=== PATIENT | male | born 1960 | race Caucasian/White ===

== ENCOUNTER 2017-02-12 06:58 | Inpatient (IN) | payer OTHER ==
[2017-02-12] VITALS (7 sets, daily range): BP systolic 115–145; BP diastolic 61–81
[~2017-02-12] VITALS: Ht 170.2 cm; Wt 108.0 kg
--- NOTE | ~2017-02-12 | PR ---
[place], [place] PROGRESS NOTE NAME: ROSIE PALMER UNIT #: [id number] ROOM: 401 DOCTOR: DI ARELLANO MD BIRTHDATE: [birth year] DOS: 02/15/2017 SUBJECTIVE: The patient is doing about the same. OBJECTIVE: VITAL SIGNS: Blood pressure 128/71, heart rate 95 beats per minute, breathing 16 times per minute, temperature of 98.5 degrees Fahrenheit. GENERAL APPEARANCE: The patient is alert and oriented x 3, in no visible distress except for generalized weakness, obesity. The patient unable to communicate much. HEENT AND NECK: Exam within normal limits. CARDIOVASCULAR SYSTEM: Heart rate is regular in rate and rhythm. S1 and S2 normally audible. LUNGS: Clear to auscultation. ABDOMEN: Soft, nontender. No obvious organomegaly. Bowel sounds are present. EXTREMITIES: Without significant cyanosis or edema. IMPRESSION: 1. The patient with hypoxemic respiratory failure, acute over chronic, with bacterial pneumonia, growing mixed gram positive and negative organisms, secondary to aspiration pneumonia, being followed and treated by Dr. Garcia, the whistle punk. The patient is clinically improving with treatment. 2. Hypokalemia, for which the patient was given extra potassium supplements, and the patient being hydrated with IV fluids. 3. History of advanced brain injury as a child with encephalomalacia and brain damage with limited functioning and advanced disability. We are taking bedsore precautions. DI ARELLANO MD CM:PNTRANS [phone] DI ARELLANO MD 02/16/17 1646 interface
--- NOTE | ~2017-02-12 | PROC NOTE ---
[place], [place] PROCEDURE NOTE NAME: ROSIE PALMER UNIT #: [id number] ROOM: 403 DOCTOR: EDMUNDO GARCIA MD,KORI BIRTHDATE: [birth year] DOS: 02/13/2017 PREOPERATIVE DIAGNOSES: The patient with acute exacerbation of pneumonia with excessive chest congestion and respiratory distress. POSTOPERATIVE DIAGNOSES: Removal of copious amount of mucopurulent material removed from the endobronchial tree bilaterally. PROCEDURE DESCRIPTION: Informed consent obtained from the patient. The patient was placed in supine position. The consent was obtained from the patient's power of disability attorney. The sedation was administered by the Anesthesia Department. After achieving appropriate sedation for the patient, the video fiberoptic bronchoscope advanced into the patient's airway into the laryngeal area. Epiglottis and vocal cords were seen. Bronchoscope advanced to the vocal cord and tracheal lumen as the tracheal lumen was entered. Copious amount of thick purulent secretion present coating the trachea and filling the tracheal lumen. All secretions suctioned out with the help of normal saline wash. Flora was noted sharp. After removal of the secretions. Right upper, right middle, right lower, left upper, lingular lower lobe bronchi were all noted with copious amounts of similar secretions as present in the tracheal lumen was removed with the help of normal saline wash. Procedure was well tolerated by the patient without any difficulty. Based on the current bronchoscopy, no change in treatment will be needed. The patient already getting broad spectrum intravenous antibiotics for good coverage of Gram-positive and Gram-negative organisms. The feeding could be resumed for the patient 4 hours after the bronchoscopy. Aspiration precaution to be continued as previously. KORI WYATT MD CM:PROCNOTE:PROCEDURE NOTE [id number] KORI GARCIA MD
--- NOTE | ~2017-02-12 | CON ---
[place], [place] REPORT OF CONSULTATION NAME: ROSIE PALMER UNIT #: [id number] ROOM: 403 DOCTOR: EDMUNDO GARCIA MD,KORI BIRTHDATE: [birth year] DOS: 02/13/2017 PULMONARY CONSULTATION EVALUATION AND MANAGEMENT CONSULTATION REQUESTED BY: Dr. Bella Alston. HISTORY OF PRESENT ILLNESS: A 56-year-old white male who has been noted with chronic head trauma, neurologic injury for the patient for several years, resides at the nursing facility for the chronic traumatic brain injury and quadriplegia. The patient has been noted with symptoms of having progressive increase in the respiratory rate with gurgling sound heard as well as acute hypoxia. The patient was sent to the Emergency Room, where he had been assessed and currently hospitalized for further medical management. The patient unable to give me history because of the patient's history of chronic traumatic brain injury, inability to speak and aphasia. He has been currently noted comfortably lying in the bed. He has been noted with some labored breathing as well as some chest congestion and gurgling sounds were heard. The patient resides at the nursing facility. He has been treated previously in the hospital, medical record reviewed for the acute hypoxic respiratory failure with MRSA pneumonia in 06/2016 in this hospital and then sent back to the nursing facility. PAST MEDICAL HISTORY: 1. History of recurrent acute pneumonia in the past. 2. History of chronic oropharyngeal dysphagia for the patient with traumatic brain injury. 3. 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 4. History of cholelithiasis. 5. Hepatic steatosis. 6. Moderate obesity. 7. Generalized seizure disorder. 8. Urethral stricture for this patient with suprapubic catheter. 9. Past history of deep venous thrombosis of the left lower extremity. PAST SURGICAL HISTORY: Noted: 1. PEG tube placement. 2. Suprapubic catheter insertion. 3. Fiberoptic bronchoscopy for the patient, which was therapeutic, done in 06/2016. SOCIAL HISTORY: The patient is a long-term resident of the nursing facility at the present time. He has not been known with any history of tobacco use, alcohol or any recent tobacco use. FAMILY HISTORY: The patient was noted unknown. MEDICATIONS: Current medications administered were noted as use of Risperdal, Coumadin 7.5 mg daily, Depakote, IV Zosyn, vancomycin, intravenous fluids and other p.r.n. medications administration. [place], [place] REPORT OF CONSULTATION NAME: ROSIE PALMER UNIT #: [id number] ROOM: 403 DOCTOR: EDMUNDO GARCIA MD,KORI BIRTHDATE: [birth year] ALLERGIES: The drug allergy history of the patient was recorded as no known drug allergies. PHYSICAL EXAMINATION: GENERAL: This is a 56-year-old white male currently noted to be awake and alert, does not speak with aphasia. Height of 5 feet 7 inches, weight of 170 pounds. VITAL SIGNS: Shows normal temperature since admission, respiratory rate of 24-18, heart rate of 92-105, blood pressure 116/62-128/65. Pulse oxygen saturation on 4 L nasal cannula was noted as 99% saturation this morning. HEENT: Examination shows head was atraumatic, chronic moderate obesity. NECK: Supple. CARDIOVASCULAR: S1, S2 audible. LUNGS: Noted scattered crackles at the lungs were noted bilaterally. ABDOMEN: Soft, obese, nontender. PEG tube in place. EXTREMITIES: The patient shows chronic obesity without edema, clubbing, cyanosis. CENTRAL NERVOUS SYSTEM: The patient noted with quadriplegia. SKIN: Visible skin does not show any abnormalities such as lesions or rashes. MUSCULOSKELETAL: No gross deformities. LABORATORY DATA: Arterial blood gas that was done yesterday on 3 L nasal cannula, pH of 7.41, pCO2 of 45, pO2 of 65.7. Lactic acid yesterday noted 2.1. Followup lactic acid of 3.3 in the last 24 hours. The INR for patient on admission was 2.1. CBC of the patient of 02/12/2017, WBC count 11.6, hemoglobin 12.7, hematocrit 40.3, platelet count 262,000. CMP of the patient on 02/12/2017, glucose 189, BUN and creatinine was normal, sodium 133, CO2 of 33. Endotracheal aspirate culture of the patient noted with light growth of gram-negative bacilli for this patient. Creatinine for this patient was noted as normal this morning. Chest x-ray of the patient that was done, 1 view was noted partially noted infiltration involving the left lung for this patient in the left lower lobe. Right lung appeared to be clear. There was no finding of congestive heart failure or significant pleural fluid visible. IMPRESSION: 1. The patient who has been currently admitted to the hospital, noted with acute on chronic hypoxic respiratory failure, result of acute aspiration pneumonia, gram negative infection with possibility of mixed nancy to be suspected. The patient was noted excessive congestion of chest with difficulty breathing with inability to expectorate sputum for this patient. 2. The patient with chronic anticoagulation noted with therapeutic INR which has relapsed. 3. Past history of deep venous thrombosis as well. 4. Lactic acidosis with finding of acute sepsis secondary to acute bacterial pneumonia has been also noted. 5. History of chronic oropharyngeal dysphagia, the patient with past history of recurrent pneumonia; however, the patient has not been noted with any acute infection for the past 7-8 months and not hospitalized for any pneumonia since then. [place], [place] REPORT OF CONSULTATION NAME: ROSIE PALMER UNIT #: [id number] ROOM: 403 DOCTOR: KORI LEON MD BIRTHDATE: [birth year] PLAN OF TREATMENT: The blood culture of the patient has been already obtained. Monitor cultures of the endotracheal aspirate. Fiberoptic bronchoscopy to help clear up significant secretions that will also improve the respiratory distress on this patient. Use of the BiPAP if necessary as well. The patient has been noted with only mild hypercapnia with well compensated pH for this patient on admission. Currently, titrating well oxygen supplementation nasal cannula. Intravenous fluids for the patient with close monitoring to prevent any fluid overload as well. Other supportive therapy, plan of management as well for the patient as in progress. Further change in the treatment will be done after bronchoscopy. Anticoagulation at this time could be continued for this patient as the INR was noted in the low normal therapeutic range. Continue to maintain an INR of the patient in the therapeutic range. Thanks for allowing me to participate in the care of this patient. KORI WYATT MD CM:CONSTR:REPORT OF CONSULTATION 1212 02/14/17 0325 interface
--- NOTE | ~2017-02-12 | PR ---
[place], [place] PROGRESS NOTE NAME: ROSIE PALMER UNIT #: [id number] ROOM: 403 DOCTOR: DEEPALI NATHAN MD BIRTHDATE: [birth year] DOS: 02/14/2017 SUBJECTIVE: The patient is about the same, does not have any new changes. OBJECTIVE: GENERAL: On exam, he is awake and alert, orientation is questionable. LUNGS: Diminished breath sounds, scattered rhonchi and rales. HEART: Regular. ABDOMEN: Obese, soft. Suprapubic catheter and PEG tube both in place. EXTREMITIES: Without any edema. ASSESSMENT AND PLAN: 1. The patient with aspiration pneumonia, status post bronchoscopy. Bronch cultures are not completed yet, but so far he is growing Proteus mirabilis and methicillin-resistant Staphylococcus aureus on the sputum, for which he is already on Zosyn and vancomycin. Urine culture also shows Pseudomonas, which is sensitive to the Zosyn. 2. Hypokalemia, supplementation is ordered. We will discontinue IV fluids. 3. Mental retardation and developmental disabilities. The patient has tube feeding because of chronic aspiration. We will restart the tube feeding. Should go back to care home tomorrow. DEEPALI NATHAN MD CM:PNTRANS [id number] DEEPALI NATHAN MD 02/14/17 1120 interface
--- NOTE | ~2017-02-12 | PR ---
[place], [place] PROGRESS NOTE NAME: ROSIE PALMER UNIT #: [id number] ROOM: 401 DOCTOR: DI ARELLANO MD BIRTHDATE: [birth year] DOS: 02/16/2017 SUBJECTIVE: The patient is sleeping, difficult to wake up. OBJECTIVE: VITAL SIGNS: Blood pressure 134/78, heart rate 86 beats per minute, breathing 18 times per minute, temperature 98 degrees Fahrenheit. GENERAL APPEARANCE: The patient is alert and oriented x 3, in no visible distress. Generalized weakness, obesity. The patient is not communicating. Has a PEG tube in place. HEENT AND NECK: Exam within normal limits. CARDIOVASCULAR SYSTEM: Heart rate is regular in rate and rhythm. S1 and S2 normally audible. LUNGS: Clear to auscultation. ABDOMEN: Soft, nontender. No obvious organomegaly. Bowel sounds are present. EXTREMITIES: Without significant cyanosis or edema. IMPRESSION: 1. The patient with acute hypoxemic respiratory failure from acute bacterial pneumonia, suspected to be mixed gram-positive and negative from aspiration by Dr. Garcia with MRSA. 2. PEG tube placement for nutrition. 3. INR therapeutic at 2.2. The patient is being on Coumadin. 4. Hypokalemia, being treated with extra potassium supplements. 5. Brain injury with advanced disability. 6. Urine infection with resistant Pseudomonas and Enterococcus faecalis, being treated with vancomycin. I will add Zosyn to the treatment. 7. Advanced disability. The patient appears to be too sick to be sent back to longterm at this time. I will try to get him to [facility], an LTAC facility, under care of Dr. Garcia. DI ARELLANO MD CM:PNTRANS [phone] DI ARELLANO MD 02/17/17310 interface
--- NOTE | ~2017-02-12 | PR ---
[place], [place] PROGRESS NOTE NAME: ROSIE PALMER UNIT #: [id number] ROOM: 401 DOCTOR: KOIR LEON MD BIRTHDATE: [birth year] DOS: 02/15/2017 SUBJECTIVE: The patient has been noted comfortable at this time with the reduction of chest congestion noted from the past 24 hours. The patient has not been noted any hemodynamic instability for this patient. He has been noted to be awake and arousable. OBJECTIVE: VITAL SIGNS: Shows normal temperature this morning 99.7 degrees Fahrenheit, respiratory rate 18-16, heart rate 95, blood pressure 128/71. Pulse oxygen saturation noted on 2 L nasal cannula 98% saturation. HEENT: Examination shows head was atraumatic. Eyes nonicterus. CARDIOVASCULAR: S1, S2 audible. LUNGS: Shows scattered crackles at the lungs were noted for the patient without any wheezing. ABDOMEN: Soft, nontender. LABORATORY DATA: Cultures of the bronchial washing of the patient confirmed the MRSA for this patient. No other organisms were isolated. IMPRESSION: 1. The patient with acute aspiration pneumonia with methicillin-resistant Staphylococcus aureus for the patient with a history of chronic traumatic brain injury for the patient. 2. Chronic oropharyngeal dysphagia for the patient. PEG tube in place. 3. Chronic anticoagulation for the patient, which has been noted stable with the PT/INR yesterday noted as 2.5. PLAN OF TREATMENT: Continuation of the antibiotics based on the culture results with discontinuation of the Zosyn and only continuation of the vancomycin. Obtain another portable chest x-ray of the patient to assess the progression of the pneumonia. Other supportive therapy, plan and management. Obtain PT/INR for the patient for tomorrow morning as well. [place], [place] PROGRESS NOTE NAME: ROSIE PALMER UNIT #: [id number] ROOM: 401 DOCTOR: KORI LEON MD BIRTHDATE: [birth year] KORI WYATT MD CM:PNTRANS [id number] KORI GARCIA MD 02/16/17 0929 interface
--- NOTE | ~2017-02-12 | PR ---
[place], [place] PROGRESS NOTE NAME: ROSIE PALMER UNIT #: [id number] ROOM: 401 DOCTOR: DI ARELLANO MD BIRTHDATE: [birth year] DOS: 02/17/2017 SUBJECTIVE: The patient is more awake today, in no visible distress, not communicating much. OBJECTIVE: VITAL SIGNS: Blood pressure 112/66, heart rate 76 beats per minute, breathing 18 times per minute, temperature 98 degrees Fahrenheit. GENERAL APPEARANCE: The patient is alert and oriented x 3, in no visible distress. Generalized weakness, disability and morbid obesity with PEG tube in place. HEENT AND NECK: Exam within normal limits. CARDIOVASCULAR SYSTEM: Heart rate is regular in rate and rhythm. S1 and S2 normally audible. LUNGS: Clear to auscultation. ABDOMEN: Soft, nontender. No obvious organomegaly. Bowel sounds are present. EXTREMITIES: Without significant cyanosis or edema. IMPRESSION: 1. The patient with acute hypoxemic respiratory failure and acute bacterial pneumonia with suspected mixed organism, gram-positive and gram-negative. I think treat with antibiotics. Because the patient has advanced disability and serious infection, I am recommending transfer to an LTAC facility. Discussed with social insurance adviser yesterday. 2. Urine infection with resistant pseudomonas and Enterococcus faecalis, being covered with vancomycin and Zosyn. 3. Advanced disability and failure to thrive. 4. Hypokalemia, treated with extra potassium supplements. Potassium level has normalized. 5. Remote history of advanced brain injury and advanced disability. 6. Last INR therapeutic at 2.2. 7. For feeding purposes, the patient is fed through a PEG tube. He has swallowing dysfunction. [place], [place] PROGRESS NOTE NAME: ROSIE PALMER UNIT #: [id number] ROOM: 401 DOCTOR: DI ARELLANO MD BIRTHDATE: [birth year] DI ARELLANO MD CM:PNTRANS [id number] DI ARELLANO MD 02/18/17135 interface
--- NOTE | ~2017-02-12 | DS ---
[place], [place] DISCHARGE SUMMARY NAME: ROSIE PALMER UNIT #: [id number] ROOM: 401 DOCTOR: DI ARELLANO MD BIRTHDATE: [birth year] DOS: 02/18/2017 DISCHARGE DIAGNOSES: 1. The patient with acute hypoxemic respiratory failure with acute bacterial pneumonia, treated with antibiotics by Dr. Garcia. 2. Urinary tract infection with Pseudomonas and Enterococcus faecalis. 3. Hypokalemia. 4. Advanced disability and failure to thrive. 5. Dysphagia and PEG tube placement for nutrition. 6. History of generalized seizure disorder. 7. History of remote accidental head injury with organic brain syndrome. 8. Chronic urinary retention and suprapubic catheter placement. HOSPITAL COURSE: The patient was admitted by Dr. Kirsty Alston to [facility] with pneumonia, suspected to be gram-positive and gram-negative mixed organism from aspiration. The patient was evaluated and treated by cotton puller, Dr. Garcia, who has recommended discharge back to the [facility] on 1 more week of IV vancomycin today. The patient appears to have achieved maximum benefit from this admission, but he remains very debilitated and recurrent admissions for respiratory failure and pneumonia are anticipated because of his generalized poor health and staying at the nursing facility. I was planning to transfer him to an LTAC facility, [facility] under the care of Dr. Garcia for continued care, but Dr. Garcia thinks that the patient can be discharged back to [facility] on one more week of intravenous vancomycin. The patient anticoagulated with Coumadin. Last INR therapeutic at 2.2. Chronic dysphagia and aspiration pneumonia, unable to swallow. The patient is on PEG tube feedings for nutritional needs. Chronic urinary retention, treated with suprapubic catheter placement. Remote history of advanced brain injury and generalized seizure disorder, presently remained on Keppra without any seizures. Urine infection with Pseudomonas and Enterococcus faecalis, treated with vancomycin and Zosyn during his stay at the hospital. LABORATORY DATA: Potassium low at 3.2, otherwise normal serum electrolytes. DISCHARGE MANAGEMENT: Risperidone 2 mg at bedtime, warfarin 7.5 mg daily, Depakote 500 mg daily, fentanyl patch 25 mcg every 3 days. Check basic metabolic profile in a week, diazepam 5 mg t.i.d., IV vancomycin 2000 mg every 18 hours for 1 week, then to be stopped, DuoNeb every 4 hours, Seroquel 100 mg b.i.d., Depakote 500 mg 3 times a day. Check Depakote level in a week and then every month, Coumadin 7.5 mg daily. Check pro-time in a week and then every month. [place], [place] DISCHARGE SUMMARY NAME: ROSIE PALMER UNIT #: [id number] ROOM: [facility] DOCTOR: DI ARELLANO MD BIRTHDATE: [birth year] DI ARELLANO MD CM:DISCHARG [phone] DI ARELLANO MD 02/18/17 1533 interface
--- NOTE | ~2017-02-12 | PR ---
[place], [place] PROGRESS NOTE NAME: ROSIE PALMER UNIT #: [id number] ROOM: 401 DOCTOR: EDMUNDO GARCIA MD,KORI BIRTHDATE: [birth year] DOS: 02/16/2017 SUBJECTIVE: He has been noted comfortable at this time, resting on the bed without any distress. Coughing and chest congestion of the patient has been noted resolving. OBJECTIVE: VITAL SIGNS: Normal temperature, respiratory rate 18, heart rate 86, blood pressure 134/78. Pulse oxygen saturation of the patient recorded as 95% on 3 liters nasal cannula. HEENT: Chronic obesity. NECK: Supple. CARDIOVASCULAR: S1, S2 audible. LUNGS: The patient was noted without any wheezing or crackles at the present time. ABDOMEN: Soft, nontender. LABORATORY DATA: The vancomycin trough level 15.5, which is in therapeutic range. INR noted 2.2, which is therapeutic. BMP of patient was noted as normal except the potassium mildly decreased at 3.0. IMPRESSION: The patient who has been currently noted with resolving acute pneumonia with MRSA from aspiration, history of chronic dysphagia and traumatic brain injury. PLAN OF TREATMENT: No changes from the pulmonary standpoint will be recommended in his medical management. Continue the patient's current therapy and plan of care as in progress. Other usual care and therapy, plan of management. KORI WYATT MD CM:PNTRANS [phone] KORI GARCIA MD 02/17/17210 interface
--- NOTE | ~2017-02-12 | WRIGHTHP ---
[place], [place] PATIENT HISTORY AND PHYSICAL EXAM NAME: [facility]MER [facility] [id number] UNIT #: [id number] ROOM: 403 DOCTOR: DEEPALI NATHAN MD BIRTHDATE: [birth year] DOS: 02/12/2017 HISTORY OF PRESENT ILLNESS: The patient is 56 years old, very well known to us. The patient comes in with complaints of difficulty breathing and hypoxemia, so at the [facility], the staff called saying that he was quite hypoxic and had gurgling respirations and was sent down. He was in the ER and was diagnosed with aspiration pneumonia and has been admitted. The patient at the time I saw him was sitting up in his bed. He was awake and alert and did try to answer questions, but he is quite short of breath. He denies having any other complaints. Because of his MRDD, he is not able to give much history. PAST MEDICAL HISTORY: Significant for: 1. Chronic aspiration with a PEG tube placement recently, last hospitalization in 06/2016 with aspiration pneumonia. 2. Generalized seizure disorder. 3. Chronic urinary retention. 4. History of a head injury with organic brain syndrome. MEDICATIONS: He is on multiple psych medications, which include aspirin 81 daily, diazepam 5 mg t.i.d., iron 324 daily, fexofenadine 180 daily, fluoxetine 40 daily, Lasix 20 daily, metformin 500 b.i.d., omeprazole 20 daily, terazosin 4 mg at bedtime, valproic acid 10 mL, 500 mg t.i.d., quetiapine 100 mg twice a day, Risperdal 2 mg at bedtime, warfarin 7.5 daily, fentanyl 25. SOCIAL HISTORY: Nonsmoker, does not use any alcohol. PHYSICAL EXAMINATION: GENERAL: The patient is awake and alert and oriented to person. VITAL SIGNS: Graphic trend shows that he is febrile. Temperature of 99.2. LUNGS: Diminished breath sounds. Few rhonchi and rales heard throughout the lung hernadez. HEART: Regular. ABDOMEN: Obese, soft, nontender. EXTREMITIES: Without any edema. PEG tube in place, suprapubic catheter draining clear urine. LABORATORY DATA: Shows WBC count of 11.6, hemoglobin 12.7, hematocrit 40.3. Comprehensive, glucose 189, BUN 15, creatinine 0.44, sodium 133, potassium 4.0, chloride 94, bicarbonate 33. Chest x-ray shows left-sided pneumonia. ASSESSMENT AND PLAN: 1. Aspiration pneumonia. The patient has been placed on vancomycin and Zosyn. Cultures have been drawn. 2. Acute hypoxic respiratory failure. Oxygen supplementation will be ordered. The patient is comfort care only, so continued supportive symptomatic care to be ordered. 3. Schizoaffective disorder. Continue home medications. 4. Generalized seizure disorder. He is on valproate 500 mg 3 times a day, which has been ordered and he will have a valproic level. [place], [place] PATIENT HISTORY AND PHYSICAL EXAM NAME: ROSIE PALMER UNIT #: [id number] ROOM: 403 DOCTOR: DEEPALI NATHAN MD BIRTHDATE: [birth year] 5. History of chronic deep venous thrombosis, on Coumadin. Continue Coumadin because the protime is therapeutic. DEEPALI NATHAN MD CM:HISPHYS:PATIENT HISTORY AND PHYSICAL EXAMINATION 1012 DEEPALI NATHAN MD 02/12/17 1012 interface
--- NOTE | ~2017-02-12 | PR ---
[place], [place] PROGRESS NOTE NAME: ROSIE PALMER UNIT #: [id number] ROOM: 401 DOCTOR: KORI LEON MD BIRTHDATE: [birth year] DOS: 02/17/2017 PULMONARY PROGRESS NOTE SUBJECTIVE: He has been noted comfortable at this time without any distress. The patient has not been noted with any significant chest congestion, coughing, wheezing, or abdominal pain described. The patient has been noted very limited communication because of traumatic brain injury and appeared to be comfortable at this time. OBJECTIVE: VITAL SIGNS: Normal temperature, respiratory rate 18, heart rate 76, blood pressure 112/66. HEENT: Examination shows head was atraumatic. Eyes nonicterus. NECK: Supple. CARDIOVASCULAR: S1, S2 audible. LUNGS: The patient was noted without any wheezing or crackles at the present time. ABDOMEN: Soft, nontender. EXTREMITIES: Shows no edema. LABORATORY DATA: BMP of the patient and the labs today were noted essentially completely normal. IMPRESSION: 1. Acute methicillin-resistant Staphylococcus aureus pneumonia from aspiration with history of chronic neurogenic and oropharyngeal dysphagia with PEG tube in place as well. 2. Traumatic brain injury with a debilitated status. PLAN OF TREATMENT: Continue the current plan of management. The patient could be considered for discharge back to the halfway facility for continuation of antibiotics. In the meantime, continue other previous treatment, plan of management. Usual care. Supportive therapy, plan of care and treatments. [place], [place] PROGRESS NOTE NAME: ROSIE PALMER UNIT #: [id number] ROOM: 401 DOCTOR: KORI LEON MD BIRTHDATE: [birth year] KORI WYATT MD CM:PNTRANS [phone] KORI GARCIA MD 02/18/17 0030 interface
--- NOTE | ~2017-02-12 | PR ---
[place], [place] PROGRESS NOTE NAME: ROSIE PALMER UNIT #: [id number] ROOM: 401 DOCTOR: EDMUNDO GARCIA MD,KORI BIRTHDATE: [birth year] DOS: 02/18/2017 PULMONARY PROGRESS NOTE SUBJECTIVE: Has not been noted with any acute new complaints at this time with chest congestion or any other abnormal symptoms. OBJECTIVE: VITAL SIGNS: Shows normal temperature, respiratory rate 20, heart rate 81. Pulse oxygen saturation for this patient was recorded as 93% saturation on nasal cannula. Heart rate of 81. The respiratory rate 20. The blood pressure 132/64. HEENT: Showed no acute change. NECK: Supple. CARDIOVASCULAR SYSTEM: S1, S2 audible. LUNGS: The patient was noted without any wheezing or crackles at the present time. ABDOMEN: Soft, nontender. LABORATORY DATA: BMP for this patient today's lab, potassium 3.2, otherwise normal. IMPRESSION: 1. Resolving acute pneumonia and aspiration secondary to methicillin-resistant Staphylococcus aureus responding to treatment very well. 2. Mild hypokalemia. PLAN OF TREATMENT: Discharge the patient to nursing facility whenever desired. In the meantime, continue the patient's current therapy, plan of care as in progress. Usual care. KORI WYATT MD CM:PNTRANS [phone] KORI GARCIA MD 02/19/179 interface
--- NOTE | ~2017-02-12 | PR ---
[place], [place] PROGRESS NOTE NAME: ROSIE PALMER UNIT #: [id number] ROOM: 401 DOCTOR: EDMUNDO GARCIA MD,KORI BIRTHDATE: [birth year] DOS: 02/14/2017 PULMONARY FOLLOWUP NOTE SUBJECTIVE: He has been noted comfortable at this time . Still noted with some chest congestion, bronchoscopy done yesterday with copious amount of mucopurulent material was removed from the endobronchial tree. The patient has been noted awake and alert, but obviously could not communicate verbally. OBJECTIVE: VITAL SIGNS: For the patient which has been recorded shows the temperature noted as normal, respiratory rate 20, heart rate of 90, blood pressure 139/83. The pulse oxygen saturation on 3 liters nasal cannula was 100% saturation recorded. HEENT: Examination shows head was atraumatic. Eyes nonicterus. CARDIOVASCULAR SYSTEM: S1, S2 is audible. LUNGS: The patient was noted without any wheezing or crackles at the present time. ABDOMEN: Soft, nontender. LABORATORY DATA: PT/INR noted 2.5 today, which is therapeutic. Culture of the sputum for the patient, which is noted spontaneous culture noted moderate growth of MRSA, light growth of Proteus mirabilis. The Gram stain of the bronchial washings of yesterday, many white blood cells with few epithelial cells, gram-positive cocci in pairs and gram-positive bacilli. Preliminary culture noted normal nancy. Blood culture from the 10th of this month showed no bacterial growth. BMP this morning was noted as potassium 3.4, otherwise relatively normal BMP. IMPRESSION: 1. The patient who has been currently noted with acute on chronic hypoxic respiratory failure with acute bacterial pneumonia with the gram-positive, gram-negative organisms secondary to aspiration has been considered and treated. 2. Chronic traumatic brain injury. 3. Resolving acute sepsis and pneumonia. 4. Oropharyngeal dysphagia. PLAN OF TREATMENT: Continue current antibiotics of the patient. Monitor culture results of bronchial washings. Possible transfer to detention facility in the next 24-48 hours depends on the further clinical stability would be considered. Adjustment in antibiotic based on the bronchial washing cultures. The patient might require additional bronchoscopy later on of the patient possibly as an outpatient. The patient was transferred to the detention facility. next week. [place], [place] PROGRESS NOTE NAME: ROSIE PALMER UNIT #: [id number] ROOM: [facility] DOCTOR: EDMUNDO GARCIA MD,KORI BIRTHDATE: [birth year] KORI WYATT MD CM:PNMARGARITA [phone] KORI GARCIA MD 02/14/172218 interface
--- NOTE | ~2017-02-12 | PR ---
[place], [place] PROGRESS NOTE NAME: ROSIE PALMER UNIT #: [id number] ROOM: 403 DOCTOR: DEEPALI NATHAN MD BIRTHDATE: [birth year] DOS: SUBJECTIVE: The patient is doing fine, overall, but he still has a lot of gurgling respirations this morning, he did try to communicate. OBJECTIVE: VITAL SIGNS: Blood pressure is 109/63, pulse of 83, respirations 24, temperature 98.1. LUNGS: Diminished breath sounds. HEART: Regular. ABDOMEN: Obese, soft, nontender. EXTREMITIES: Without any edema. LABORATORY DATA: Cultures of the urine showed gram-negative bacteria and gram-positive bacteria, identification is not available. Sputum culture shows slight gram-negative bacteria. ASSESSMENT AND PLAN: 1. Sepsis from aspiration pneumonia. The patient is on IV antibiotics, vancomycin and Zosyn, awaiting the culture report to decide on adjustments and antibiotics. 2. Quite a lot of mucus that needs to be suctioned out. I did discuss with Dr. Garcia of possible bronchoscopy will be scheduled for today. The patient is being kept n.p.o. 3. History of chronic deep vein thrombosis, on Coumadin, protime was 2.1 yesterday should be okay to have the bronchoscopy. Repeat labs to be ordered for tomorrow. DEEPALI NATHAN MD CM:PNTRANS [phone] DEEPALI NATHAN MD 02/13/172117 interface
[~2017-02-12 06:58] MED LIST: ALAVERT10 MG PO; ALBUTEROL0.63 MG/3 NEB; ALLEGRA-D 24 H1 EACH PO; ASPIR LOW81 MG PO; ASPIR-TRIN325 MG PO; ASPIRIN DELAYE325 MG PO; CIPRO500 MG PO; CLARITIN10 MG PO; COUMADIN3 M1 PO; COUMADIN5 M2 PO; COUMADIN5 MG PO; CYMBALTA30 MG PO; CYMBALTA60 MG PO; Coumadin2 MG PO; Coumadin5 MG PO; DEPAKOTE DR500 MG PO; DUONEB 3 MG/3 ML3 M1 INH; DUONEB 3ML 3 MG/3 ML INH; GEODON20 MG PO; HALDOL PO; HALDOL0.5 MG PO; HALDOL1 MG IM; HALDOL1 MG PO; HYDROCORTISONE 14 OZ PO; JANTOVEN5 MG PO; KEFLEX500 MG PO; KEPPRA; KEPPRA500 MG PO; KETOCONAZOLE 1120 M1 TP; LASIX20 MG PO; LEVAQUIN750 M1 PO; LEVOFLOXACIN500 MG PO; LIQUID TEARS OP; LIQUITEARS 15 M15 ML INTRAOC; LIQUITEARS 15 M15 ML OP; LIQUITEARS 15 M15 ML OU; LOVENOX100 MG/1 M PO; MILK OF MA400 MG/5 M PO; MILK OF MAG PO; MILK OF MAGNESI1 TAB PO; MIRALAX17 GM PO; MIRALAX17 GM/DOSE PO; NAPROSYN375 MG PO; NIZORAL SHAMPOO T; NORVASC5 MG PO; Nizoral 2%15 GM T; OMEPRAZOLE20 MG PO; OSCAL/D,OYSTER250 MG PO; OYSTER SHELL 51 EACH PO; PRILOSEC20 M2 PO; PROVERA10 MG PO; PROZAC20 MG PO; PROZAC40 MG PO; PYRIDIATE100 MG PO; PYRIDIUM100 MG PO; RISPERDAL1 MG PO; SENSI CARE MOIS TP; SENSI CARE TP; SEROQUEL100 MG PO; SEROQUEL200 MG PO; TERAZOSIN HCL2 M1 PO; TRAMADOL HCL50 MG PO; TYLENOL WITH CO1 TA1 PO; TYLENOL/CODEINE #3 PO; TYLENOL325 M1 PO; VALIUM2 MG PO; VITAMIN C1000 M5 PO; VITAMIN C500 MG PO; VITAMIN D1000 IU PO; VITAMIN D31000 I1 PO; VITAMIN D34000 UNIT PO; WESTCORT T; [UNRECOGNIZED DRUG - CODE] PO; [UNRECOGNIZED DRUG - CODE] T; [UNRECOGNIZED DRUG - OTHER] TP
[2017-02-12] MEDS ORDERED: CEFTRIAXONE1 GM IM (07:13)
[2017-02-12] MEDS ORDERED: RISPERDAL2 M1 PO (07:13)
[2017-02-12] MEDS ORDERED: COUMADIN7.5 M1 PO (07:14)
[2017-02-12] MEDS ORDERED: BIOTENE MOIST44.3 ML MM (07:15)
[2017-02-12] MEDS ORDERED: TERA T (07:16)
[2017-02-12] MEDS ORDERED: [UNRECOGNIZED DRUG - OTHER] PEG (07:17)
[2017-02-12] MEDS ORDERED: FENTANYL TR25 MCG/HR TD (07:19)
[2017-02-12] MEDS ORDERED: METFORMIN500 MG PEG (07:19)
[2017-02-12] MEDS ORDERED: DIAZEPAM5 MG PEG (07:20)
[2017-02-12] MEDS ORDERED: MIRALAX17 GM PEG (07:20)
[2017-02-12] MEDS ORDERED: KETOCONAZOLE 1120 M1 T (07:22)
[2017-02-12] MEDS ORDERED: TERAZOSIN HCL2 M1 PEG (07:23)
[2017-02-12] MEDS ORDERED: OMEPRAZOLE20 M2 PEG (07:23)
[2017-02-12] MEDS ORDERED: FUROSEMIDE20 M1 PEG (07:24)
[2017-02-12] MEDS ORDERED: VALPROIC ACI50 MG/ML PEG (07:24)
[2017-02-12] MEDS ORDERED: LIQUITEARS 15 M15 ML OU (07:25)
[2017-02-12] MEDS ORDERED: DUONEB 3 MG/3 ML3 M1 INH (07:26)
[2017-02-12] MEDS ORDERED: QUETIAPINE FUM100 M1 PO (07:26)
[2017-02-12] MEDS ORDERED: ALLEGRA ALLERG180 M2 PEG (07:27)
[2017-02-12] MEDS ORDERED: ASPIRIN CHEWABL81 MG PEG (07:27)
[2017-02-12] MEDS ORDERED: FERROUS SULFAT324 M2 PEG (07:28)
[2017-02-12] MEDS ORDERED: FLUOXETINE40 MG PEG (07:28)
[2017-02-12] MEDS ORDERED: CHLORHEXIDINE480 ML BC (07:30)
[2017-02-12] MEDS ORDERED: VITAMIN C100 M3 PEG (07:30)
[2017-02-12 07:58] LABS: ABG BASE EXCESS 4.1 mmol/L (-2.0-2.0); ABG CO2 CONTENT 30.3 mmol/L (23-27); ABG HCO3 28.9 mmol/l (22-26); ABG TEMPERATURE 98.1 F (98.0-99.0); ARTERIAL BLOOD GAS PH 7.416 (7.35-7.45); ARTERIAL BLOOD GAS PO2 65.7 mmHg (80-90)
[2017-02-12 08:00] LABS: HEMATOCRIT 40.3 % (42.0-52.0); HEMOGLOBIN 12.7 g/dl (14.0-18.0); MEAN CORPUSCULAR HGB CONC 31.5 g/dl (33.0-37.0); MEAN PLATELET VOLUME 10.3 fl (9.6-12.3); PLATELET COUNT AUTOMATED 262 10*3/uL (130-400); RED BLOOD COUNT 4.53 10*6/uL (4.50-5.90); RED CELL DISTRI WIDTH 15.5 % (0-14.5); WHITE BLOOD COUNT 11.6 10*3/uL (4.8-10.8)
[2017-02-12 08:07] LABS: INTERNATIONAL NORM RATIO 2.1 (2.0-3.5); PROTHROMBIN TIME 23.4 SECONDS (9.0-12.4)
[2017-02-12 08:14] LABS: ALBUMIN 2.7 gm/dl (3.1-4.5); ALKALINE PHOSPHATASE 34 U/L (45-117); BILIRUBIN, TOTAL 0.2 mg/dl (0.2-1.0); BUN 15 mg/dl (7-24); CARBON DIOXIDE 33 mmol/L (21-32); CHLORIDE 94 mmol/L (98-107); EST GLOM FILT AFRICAN AMERICAN > 60 ml/min; GLUCOSE 189 mg/dL (65-99); SGOT/AST 14 IU/L (3-35); SGPT/ALT 18 U/L (12-78); SODIUM 133 mmol/L (136-145); TOTAL PROTEIN 8.2 gm/dL (6.4-8.2)
[2017-02-12 08:22] LABS: EOSINOPHIL # 0.2 10*3/uL (0-0.4); EOSINOPHILS 2 % (1-4); LYMPHOCYTE # 4.2 10*3/uL (1.3-4.4); NEUTROPHIL # 6.1 10*3/uL (2.3-7.9); NEUTROPHILS 53 % (47-73); PLATELET SUFFICIENCY NORMAL (NORMAL); TOTAL CELLS COUNTED 100 #CELLS
[2017-02-12 08:26] LABS: TROPONIN I < 0.015 ng/ml (<0.045)
[2017-02-12 08:33] LABS: BILIRUBIN NEGATIVE (NEGATIVE); BLOOD 3+ (NEGATIVE); CLARITY SL CLOUDY (CLEAR); COLOR YELLOW (YELLOW); GLUCOSE NEGATIVE (NEGATIVE); KETONE NEGATIVE (NEGATIVE); LEUKO ESTERASE 3+ (NEGATIVE); NITRITE POSITIVE (NEGATIVE); PROTEIN 1+ (NEGATIVE); SPECIFIC GRAVITY 1.015 (1.005-1.030)
[2017-02-12 09:17] LABS: BACTERIA 4+; CALCIUM OXALATE CRYSTALS 1+; RBC TNTC rbc/hpf (0-2); URINE REFLEX COMMENT YES (NO); WBC 21-30 wbc/hpf (0-5)
[2017-02-12 09:53] LABS: LA>2 REFLEX 2 HR DRAW NOW
[2017-02-12 10:18] LABS: LA>2 RFLX FOLLOW UP AT 2 HRS 3.3 mmol/L (0.4-2.0)
[2017-02-12 12:09] LABS: LA>2 REFLEX 4 HR DRAW NOW
[2017-02-13] VITALS (8 sets, daily range): BP systolic 108–161; BP diastolic 57–86
[2017-02-13 07:45] LABS: EST GLOM FILT AFRICAN AMERICAN > 60 ml/min
[2017-02-14] VITALS: BP 147/85
[2017-02-14 07:05] LABS: BASO # 0.1 10*3/uL (0.0-0.1); BASO % 0.7 % (0.0-1.0); EOS # 0.4 10*3/uL (0.0-0.4); EOS % 4.4 % (1.0-4.0); HEMATOCRIT 34.3 % (42.0-52.0); IG # 0.1 10*3/uL (0.0-0.1); LYMPH # 2.2 10*3/uL (1.3-4.4); LYMPH % 23.9 % (27.0-41.0); MEAN CELL VOLUME 91.5 fl (80.0-94.0); MEAN CORPUSCULAR HGB 28.3 pg (27.0-31.0); MEAN CORPUSCULAR HGB CONC 30.9 g/dl (33.0-37.0); MONO # 1.4 10*3/uL (0.1-1.0); MONO % 15.5 % (3.0-9.0); NEUT # 4.9 10*3/uL (2.3-7.9); NEUT % 54.3 % (47.0-73.0); PLATELET COUNT AUTOMATED 255 10*3/uL (130-400); RED BLOOD COUNT 3.75 10*6/uL (4.50-5.90); RED CELL DISTRI WIDTH 15.9 % (0-14.5); WHITE BLOOD COUNT 9.1 10*3/uL (4.8-10.8)
[2017-02-14 07:07] LABS: HEMOGLOBIN 10.6 g/dl (14.0-18.0)
[2017-02-14 07:12] LABS: INTERNATIONAL NORM RATIO 2.5 (2.0-3.5); PROTHROMBIN TIME 27.9 SECONDS (9.0-12.4)
[2017-02-14 07:14] LABS: BUN 9 mg/dl (7-24); CARBON DIOXIDE 33 mmol/L (21-32); CHLORIDE 105 mmol/L (98-107); EST GLOM FILT AFRICAN AMERICAN > 60 ml/min; GLUCOSE 91 mg/dL (65-99); POTASSIUM 3.4 mmol/L (3.5-5.1); SODIUM 143 mmol/L (136-145)
[2017-02-14 08:00] VITALS: BP 139/83
[2017-02-14 12:00] VITALS: BP 122/71
[2017-02-14 13:05] LABS: ACID FAST SPEC PROCESSING Concentration (.)
[2017-02-14 16:00] VITALS: BP 149/80
[2017-02-14 20:00] VITALS: BP 132/76
[2017-02-15] VITALS: BP 158/76
[2017-02-15 08:00] VITALS: BP 128/71
[2017-02-15 16:00] VITALS: BP 172/90
[2017-02-15 20:00] VITALS: BP 154/76
[2017-02-16] VITALS: BP 138/66
[2017-02-16 06:57] LABS: BUN 9 mg/dl (7-24); CARBON DIOXIDE 34 mmol/L (21-32); CHLORIDE 103 mmol/L (98-107); EST GLOM FILT AFRICAN AMERICAN > 60 ml/min; GLUCOSE 103 mg/dL (65-99); SODIUM 142 mmol/L (136-145)
[2017-02-16 07:01] LABS: INTERNATIONAL NORM RATIO 2.2 (2.0-3.5)
[2017-02-16 08:00] VITALS: BP 134/78
[2017-02-16 16:00] VITALS: BP 150/78
[2017-02-17] VITALS: BP 114/63
[2017-02-17 06:29] LABS: BUN 13 mg/dl (7-24); CARBON DIOXIDE 31 mmol/L (21-32); CHLORIDE 106 mmol/L (98-107); EST GLOM FILT AFRICAN AMERICAN > 60 ml/min; GLUCOSE 85 mg/dL (65-99); POTASSIUM 3.6 mmol/L (3.5-5.1); SODIUM 145 mmol/L (136-145)
[2017-02-17 08:00] VITALS: BP 112/66
[2017-02-17 16:00] VITALS: BP 177/83
[2017-02-18] VITALS: BP 129/70
[2017-02-18 07:10] LABS: BUN 14 mg/dl (7-24); CARBON DIOXIDE 30 mmol/L (21-32); CHLORIDE 106 mmol/L (98-107); EST GLOM FILT AFRICAN AMERICAN > 60 ml/min; GLUCOSE 76 mg/dL (65-99); POTASSIUM 3.2 mmol/L (3.5-5.1); SODIUM 146 mmol/L (136-145)
[2017-02-18 08:00] VITALS: BP 132/64; BP 98/70
== END 2017-02-18 16:23 | DRG 871 ==
LOC: ED 06:58 → EDHOLD 07:38 → 4E 07:38
PROVIDERS: Emergency Medicine; Internal Medicine; Internal Medicine Critical Care Medicine
PROC: 0BC58ZZ Extirpation of Matter from Right Middle Lobe Bronchus, Via Natural or Artificial Opening Endoscopic (ICD-10-PCS; principal; 2017-02-13)
PROC: 0BCB8ZZ Extirpation of Matter from Left Lower Lobe Bronchus, Via Natural or Artificial Opening Endoscopic (ICD-10-PCS; principal; 2017-02-13)
PROC: 0BC88ZZ Extirpation of Matter from Left Upper Lobe Bronchus, Via Natural or Artificial Opening Endoscopic (ICD-10-PCS; principal; 2017-02-13)
PROC: 0BC68ZZ Extirpation of Matter from Right Lower Lobe Bronchus, Via Natural or Artificial Opening Endoscopic (ICD-10-PCS; principal; 2017-02-13)
PROC: 0BC18ZZ Extirpation of Matter from Trachea, Via Natural or Artificial Opening Endoscopic (ICD-10-PCS; principal; 2017-02-13)
PROC: 0BC98ZZ Extirpation of Matter from Lingula Bronchus, Via Natural or Artificial Opening Endoscopic (ICD-10-PCS; principal; 2017-02-13)
PROC: 0BC48ZZ Extirpation of Matter from Right Upper Lobe Bronchus, Via Natural or Artificial Opening Endoscopic (ICD-10-PCS; principal; 2017-02-13)
PROC: 0BC28ZZ Extirpation of Matter from Carina, Via Natural or Artificial Opening Endoscopic (ICD-10-PCS; principal; 2017-02-13)
DX: A41.9 Sepsis, unspecified organism (principal); J69.0 Pneumonitis due to inhalation of food and vomit; J96.21 Acute and chronic respiratory failure with hypoxia; J15.212 Pneumonia due to Methicillin resistant Staphylococcus aureus; N39.0 Urinary tract infection, site not specified; F25.9 Schizoaffective disorder, unspecified; R62.7 Adult failure to thrive; F78 Other intellectual disabilities; B95.2 Enterococcus as the cause of diseases classified elsewhere; B96.5 Pseudomonas (aeruginosa) (mallei) (pseudomallei) as the cause of diseases classified elsewhere; E87.6 Hypokalemia; G40.409 Other generalized epilepsy and epileptic syndromes, not intractable, without status epilepticus; E66.9 Obesity, unspecified; Z68.37 Body mass index [BMI] 37.0-37.9, adult; Z93.1 Gastrostomy status; Z87.820 Personal history of traumatic brain injury; Z79.01 Long term (current) use of anticoagulants; Z87.891 Personal history of nicotine dependence; Z86.718 Personal history of other venous thrombosis and embolism; Z82.49 Family history of ischemic heart disease and other diseases of the circulatory system